=== PATIENT | male | born 1970 | race Caucasian/White ===

== ENCOUNTER 2019-01-05 11:21 | Emergency (ER) | payer OTHER ==
[~2019-01-05] VITALS: Ht 170.2 cm; Wt 90.0 kg
[~2019-01-05 11:21] MED LIST: BENZ2TAB7 PO; RISP2 PO
[2019-01-05] MEDS ORDERED: ASPIRIN 81MG TABLET PO ONE (11:45)
[2019-01-05 12:06] LABS: BASOPHILS % 0.5 % (0.0-2.0); CHLORIDE 105 mEq/L (98-107); HEMOGLOBIN. 15.4 g/dL (14.0-18.0); LYMPHOCYTES % 21.7 % (20.0-50.0); MEAN CORPUSCULAR HEMOGLOBIN 31.2 pg (28.0-32.0); MEAN CORPUSCULAR VOLUME 89.4 fL (80.0-94.0); MEAN PLATELET VOLUME 7.2 fl (7.4-10.4); MONOCYTES % 10.9 % (2.0-8.0); NEUTROPHILS % 66.9 % (40.0-76.0); PLATELET 288 x1000/uL (130-400); RED BLOOD CELL COUNT 4.92 mill/uL (4.7-6.1); RED CELL DISTRIBUTION WIDTH 13.9 % (11.6-14.6)
[2019-01-05 18:10] VITALS: BP 140/96
== END 2019-01-05 17:30 | disposition short-term general hospital (02) ==
LOC: ER 11:21 → CANBEDREQ 16:46 → ER 17:30
DX: R07.89 Other chest pain (principal); R00.0 Tachycardia, unspecified; F17.200 Nicotine dependence, unspecified, uncomplicated
CPT/HCPCS: 36415; 71045; 83880; 84484; 85379; 93005; 99285; 99406

== ENCOUNTER 2019-04-11 21:12 | Emergency (ER) | payer OTHER ==
[~2019-04-11] VITALS: Ht 170.2 cm; Wt 90.0 kg
[2019-04-11 21:15] VITALS: BP 120/84
[2019-04-11] MEDS ORDERED: ACETAMINOPHEN 325MG TABLET PO ONE (22:00)
[2019-04-11] MEDS ORDERED: HYDROXYZINE 25MG TABLET PO ONE (22:00)
== END 2019-04-14 06:58 | disposition left against medical advice (07) ==
LOC: ER 21:12
DX: R51 Headache (principal); F41.9 Anxiety disorder, unspecified; F20.9 Schizophrenia, unspecified; I10 Essential (primary) hypertension; Z79.899 Other long term (current) drug therapy
CPT/HCPCS: 99283

== ENCOUNTER 2020-08-20 13:38 | Emergency (ER) | payer OTHER ==
[~2020-08-20] VITALS: Ht 165.1 cm; Wt 73.0 kg
[2020-08-20] MEDS ORDERED: PHEN51CR24 TP (15:02)
[2020-08-20] MEDS ORDERED: PSYL0.4C2 MT (15:02)
[2020-08-20 15:28] VITALS: BP 142/96
== END 2020-08-20 15:29 | disposition home or self-care (01) ==
LOC: ER 13:58
DX: K62.89 Other specified diseases of anus and rectum (principal); I10 Essential (primary) hypertension; F20.9 Schizophrenia, unspecified; Z79.899 Other long term (current) drug therapy
CPT/HCPCS: 99282